=== PATIENT | female | born 1995 | race Two or more races ===

== ENCOUNTER 2019-05-28 20:53 | Outpatient (CLI) | payer OTHER ==
[2019-05-28] MEDS ORDERED: PRENATAL TABLE1 EAC1 PO (21:17)
== END 2019-05-29 14:05 | disposition home or self-care (01) ==
LOC: OBS/DEL 20:53
DX: O76 Abnormality in fetal heart rate and rhythm complicating labor and delivery (principal)

== ENCOUNTER 2019-08-22 06:56 | Inpatient (IN) | payer OTHER ==
[~2019-08-22] VITALS: Ht 170.2 cm; Wt 95.3 kg
[~2019-08-22 06:56] MED LIST: PRENATAL TABLE1 EAC1 PO
== END 2019-08-24 14:43 | disposition home or self-care (01) | DRG 807 ==
LOC: LDR 06:56 → OB/GYN 06:56
PROVIDERS: ADMIT Obstetrics & Gynecology
PROC: 10E0XZZ Delivery of Products of Conception, External Approach (ICD-10-PCS; principal; 2019-08-22)
PROC: 0HQ9XZZ Repair Perineum Skin, External Approach (ICD-10-PCS; 2019-08-22)
PROC: 4A1HXFZ Monitoring of Products of Conception, Cardiac Rhythm, External Approach (ICD-10-PCS; 2019-08-22)
PROC: 3E033VJ Introduction of Other Hormone into Peripheral Vein, Percutaneous Approach (ICD-10-PCS; 2019-08-22)
DX: O70.0 First degree perineal laceration during delivery (principal); Z37.0 Single live birth; Z3A.39 39 weeks gestation of pregnancy